=== PATIENT | female | born 1945 | race Two or more races ===

== ENCOUNTER 2019-01-17 09:42 | Emergency (ER) | payer MEDICARE, MEDICAID ==
--- NOTE | 2019-01-17 09:59 | ER Document Report ---
ED Medical Screen (RME) - General Chief Complaint: Diarrhea Stated Complaint: DIARRHEA Time Seen by Provider: 01/17/19 09:53 Primary Care Provider: MARY ABEL [Primary Care Provider] - Follow up as needed Mode of Arrival: Wheelchair Information source: Relative Notes: Patient presents with a complaint of abdominal pain and diarrhea for the past 3 days. Patient has had nausea no fever or vomiting. Family member states that patient is occasionally confused. Patient complains of left upper quadrant abdominal tenderness. hx: Hypertension, arthritis, CHF, cholecystectomy, I have greeted and performed a rapid initial assessment of this patient. A comprehensive ED assessment and evaluation of the patient, analysis of test results and completion of the medical decision making process will be conducted by additional ED providers. TRAVEL OUTSIDE OF THE [place] IN LAST 30 DAYS: No - Related Data Allergies/Adverse Reactions: No Known Allergies Allergy (Verified 01/17/19 09:52) Physical Exam - Vital signs Vitals: Temp Pulse Resp BP Pulse Ox 97.6 F 91 20 149/77 H 99 01/17/19 09:51 01/17/19 09:51 01/17/19 09:51 01/17/19 09:51 01/17/19 09:51 - Abdominal Inspection: Morbidly Obese Tenderness: Tender - Left upper quadrant Course - Vital Signs Vital signs: Temp Pulse Resp BP Pulse Ox 97.6 F 91 20 149/77 H 99 01/17/19 09:51 01/17/19 09:51 01/17/19 09:51 01/17/19 09:51 01/17/19 09:51 Doctor's Discharge - Discharge Referrals: MARY ABEL [Primary Care Provider] - Follow up as needed
[2019-01-17 10:39] LABS: ABSOLUTE BASOPHILS # (AUTO) 0.1 10^3/uL (0.0-0.2); ABSOLUTE LYMPHOCYTES (AUTO) 2.5 10^3/uL (0.5-4.7); ABSOLUTE MONOCYTES (AUTO) 0.6 10^3/uL (0.1-1.4); ABSOLUTE NEUT (AUTO) 14.7 10^3/uL (1.7-8.2); BASOPHILS % (AUTO) 0.5 % (0-2); EOSINOPHILS % (AUTO) 0.2 % (0-6); HEMATOCRIT 43.2 % (36.0-47.0); HEMOGLOBIN 14.7 g/dL (12.0-15.5); MEAN CORPUSCULAR HEMOGLOBIN 30.9 pg (27.0-33.4); MEAN CORPUSCULAR VOLUME 91 fl (80-97); MONOCYTES % (AUTO) 3.5 % (3-13); PLATELET COUNT 240 10^3/uL (150-450); RED BLOOD COUNT 4.75 10^6/uL (3.72-5.28); RED CELL DISTRIBUTION WIDTH 13.3 % (11.5-14.0); SEGMENTED NEUTROPHILS % (AUTO) 81.8 % (42-78); TOTAL CELLS COUNTED % (AUTO) 100 %; WHITE BLOOD COUNT 17.9 10^3/uL (4.0-10.5)
[2019-01-17 11:12] LABS: ALANINE AMINOTRANSFERASE 17 U/L (9-52); ALBUMIN 4.5 g/dL (3.5-5.0); ALKALINE PHOSPHATASE 135 U/L (38-126); ANION GAP 9 (5-19); ASPARTATE AMINO TRANSFERASE 29 U/L (14-36); BILIRUBIN,DIRECT 0.3 mg/dL (0.0-0.4); BILIRUBIN,TOTAL 0.6 mg/dL (0.2-1.3); BLOOD UREA NITROGEN 14 mg/dL (7-20); CALCIUM 9.9 mg/dL (8.4-10.2); CARBON DIOXIDE 29 mmol/L (22-30); CHLORIDE 100 mmol/L (98-107); GLUCOSE 110 mg/dL (75-110); LIPASE 91.7 U/L (23-300); SODIUM 138.3 mmol/L (137-145); TOTAL PROTEIN 8.5 g/dL (6.3-8.2)
[2019-01-17] MEDS ORDERED: MORPHINE SULFATE 10 MG/ML INJ IV ONE (11:21)
[2019-01-17] MEDS ORDERED: ONDANSETRON HCL INJ/PF 4 MG/2 ML SDV IV ONE (11:21)
[2019-01-17] MEDS ORDERED: NORMAL SALINE 1000 ML 1,000 ML IV ONE (11:21)
--- NOTE | 2019-01-17 11:21 | EKG REPORT ---
SEVERITY:- ABNORMAL ECG - A-FLUTTER/FIBRILLATION W/ COMPLETE AV BLOCK NONSPECIFIC INTRAVENTRICULAR CONDUCTION DELAY PROBABLE LEFT VENTRICULAR HYPERTROPHY ANTERIOR Q WAVES, POSSIBLY DUE TO LVH : Confirmed by: Roseann Guerrero MD 17-Jan-2019 11:21:19
--- NOTE | 2019-01-17 11:27 | ER Document Report ---
ED GI/ - General Chief Complaint: Diarrhea Stated Complaint: DIARRHEA Time Seen by Provider: 01/17/19 09:53 Primary Care Provider: MARY ABEL [NO LOCAL MD] - Follow up as needed Mode of Arrival: Wheelchair Notes: Patient is a 73-year-old female with a history of congestive heart failure, hy pertension, hypothyroidism, and chronic pain who presents to the emergency department with a chief complaint of diarrhea and abdominal pain. The son states that the patient complained of diarrhea starting on Wednesday. He states that the diarrhea is brown liquid in color and without blood. He states the patient has gone to the bathroom every hour since Wednesday. Patient is also had increased urinary frequency although he states that she is on a diuretic for her congestive heart failure. The son states she is also had some confusion since Wednesday. The son states that for instance on the way to the hospital she thought the day was Wednesday. She has taken Imodium this morning without relief of the diarrhea. Patient reports that the pain is a colicky type pain and is constant. Patient is on OxyContin 20 mg every 12 hours and Percocet 5 mg 4 times a day as needed for her chronic pain. Patient does see [facility]. The son states she has chronic arthritic pain which is why she is on this medication. States she had a colonoscopy years ago which was normal. TRAVEL OUTSIDE OF THE [place] IN LAST 30 DAYS: No - Related Data Allergies/Adverse Reactions: No Known Allergies Allergy (Verified 01/17/19 10:15) Past Medical History - General Information source: Relative - Social History Smoking Status: Never Smoker Cigarette use (# per day): No Chew tobacco use (# tins/day): No Frequency of alcohol use: None Drug Abuse: None Lives with: Family Family History: None - Past Medical History Cardiac Medical History: Reports: Hx Congestive Heart Failure, Hx Hypertension Pulmonary Medical History: Reports: None EENT Medical History: Reports: None Neurological Medical History: Reports: None Endocrine Medical History: Reports: Hx Hypothyroidism Renal/ Medical History: Reports: None Malignancy Medical History: Reports: None GI Medical History: Reports: None Musculoskeletal Medical History: Reports Hx Arthritis, Reports Other - Hx. chronic pain Skin Medical History: Reports None Psychiatric Medical History: Reports: None Traumatic Medical History: Reports: None Infectious Medical History: Reports: None Past Surgical History: Reports: Hx Section Review of Systems - Review of Systems Constitutional: See HPI EENT: No symptoms reported Cardiovascular: No symptoms reported Respiratory: No symptoms reported Gastrointestinal: See HPI Genitourinary: See HPI Female Genitourinary: No symptoms reported Musculoskeletal: No symptoms reported Skin: No symptoms reported Hematologic/Lymphatic: No symptoms reported Neurological/Psychological: No symptoms reported Physical Exam - Vital signs Vitals: Temp Pulse Resp BP Pulse Ox 97.6 F 91 20 149/77 H 99 01/17/19 09:51 01/17/19 09:51 01/17/19 09:51 01/17/19 09:51 01/17/19 09:51 Interpretation: Hypertensive - Notes Notes: GENERAL: Well-appearing, well-nourished and in no acute distress. HEAD: Atraumatic, normocephalic. EYES: Pupils equal round and reactive to light, extraocular movements intact, sclera anicteric, conjunctiva are normal. ENT: Nares patent, oropharynx clear without exudates. Dry mucous membranes. NECK: Normal range of motion, supple without lymphadenopathy or JVD. LUNGS: Breath sounds clear to auscultation bilaterally and equal. No wheezes rales or rhonchi. HEART: Regular rate and rhythm without murmurs, rubs or gallops. ABDOMEN: Soft, tenderness to LUQ and LLQ, normoactive bowel sounds. No guarding, no rebound. No masses appreciated. BACK: No cervical, thoracic, lumbar midline tenderness. No saddle anesthesia, normal distal neurovascular exam. GENITOURINARY: Deferred. EXTREMITIES: Normal range of motion, no pitting or edema. No clubbing or cyanosis. NEUROLOGICAL: Cranial nerves II through XII grossly intact. Normal speech, normal gait (patient does walk slowly with walker and assistance) PSYCH: Normal mood, normal affect. SKIN: Warm, Dry, normal turgor, no rashes or lesions noted. Course - Re-evaluation Re-evalutation: 01/17/19 11:29 Acute abdominal series x-ray is pending well as labs. Hydrate and give patient medication for her abdominal pain and nausea. We will continue to monitor. 01/17/19 13:09 Upon reevaluation patient appears to be feeling better but her abdomen remains extremely tender in the left upper and left lower quadrant. She has not had any diarrhea since being in the emergency department. Patient has received about 500 mL's of the saline bolus and the family member states that she is acting more coherent. Patient was able to provide a urine specimen in which the results are pending. Since the patient remains tender in the left upper and lower quadrant, she has a leukocytosis I do believe patient requires additional imaging. She is EKG was read as an A. fib a flutter with a heart rate of 99. Patient's QT was 376 and QTC 483. It is extremely difficult to read the EKG as there is a large amount of artifact. Patient does not have a history of A. fib or a flutter and is not currently have any chest pain or shortness of breath. The EKG did show a normal axis deviation without any obvious ST segment changes. Will repeat EKG. 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 01/17/19 16:56 On reevaluation I did use the [employer] translator/interpreter, name is Charisse, to perform a reevaluation. Patient states that she is having slight left mid abdominal pain but feels much better. Patient does have hyperactive bowel sounds abdomen remains soft. Patient states she has not had any nausea, vomiting or diarrhea since being in the emergency department. Son had mentioned concerned that she was slightly confused and did not know the year or what city she was in. I did perform a thorough neuro assessment which was negative except patient did not know the year or city. Patient was aware that she is in the hospital for her abdominal pain and diarrhea. Patient does take a significant amount of narcotics for her chronic pain. Son states she has not had these medications since being in the emergency department. Son states she did have similar symptoms in the past where she was confused for 2 days while in [place]. He states that she was not diagnosed with a stroke or a mini stroke but was told that she was dehydrated. Patient states that this occurs while she is taking her medication and while she is dehydrated. I did inform the patient and son that a CT scan of the head would be ordered to rule out stroke or bleed as the son states her symptoms have been present since yesterday. The son and patient both refused stating that they do not think that is necessary at this time. Son states he would like to take the patient home, give her her medications and will return if her symptoms worsen. 01/17/19 17:35 Continues to tolerate sips of water no acute distress. I did discuss strict return precautions with the patient and his son. The son states that the patient lives with her and he will keep a close eye on her and return for any concerning signs or symptoms. I did state that she potentially has colitis and to start out with a clear liquid diet and advance to a brat diet. Patient to avoid greasy or fatty foods as this can exacerbate her symptoms. And patient both verbalized understanding. Her blood pressure was slightly elevated at discharge. Patient has not had any of her blood pressure medication in which she will take when she gets home. She denies headache or dizziness. - Vital Signs Vital signs: Temp Pulse Resp BP Pulse Ox 97.6 F 91 14 172/110 H 98 01/17/19 09:51 01/17/19 09:51 01/17/19 15:01 01/17/19 15:01 01/17/19 15:01 - Laboratory Result Diagrams: 01/17/19 10:16 01/17/19 10:16 Laboratory results interpreted by me: 01/17/19 01/17/19 01/17/19 10:16 10:16 12:55 WBC 17.9 H Seg Neutrophils % 81.8 H Absolute Neutrophils 14.7 H Alkaline Phosphatase 135 H Total Protein 8.5 H Urine Ketones 25 H Urine Blood SMALL H Ur Leukocyte Esterase SMALL H 01/17/19 17:24 She has a leukocytosis 17.9. - Diagnostic Test Radiology reviewed: Reports reviewed - EKG Interpretation by Me Additional EKG results interpreted by me: 01/17/19 17:23 The EKG was read as an A. fib a flutter with a heart rate of 99. Patient's QT was 376 and QTC 483. It is extremely difficult to read the EKG as there is a large amount of artifact. Patient does not have a history of A. fib or a flutter and is not currently have any chest pain or shortness of breath. The EKG did show a normal axis deviation without any obvious ST segment changes. 01/17/19 17:30 Patient's repeat EKG shows a sinus rhythm with a rate of 93. Patient's RI interval is 208, QT is 376 and QTC is 468. Patient has a normal axis deviation with no significant ST segment changes. Did show this to ekg to Dr. Sherine Singh for comparison of the first ekg. Discharge - Discharge Clinical Impression: Nausea vomiting and diarrhea, Confusion, Colitis Abdominal pain Qualifiers: Abdominal location: unspecified location Qualified Code(s): R10.9 - Unspecified abdominal pain Condition: Stable Disposition: HOME, SELF-CARE Additional Instructions: Today you were seen in the emergency department for vomiting and diarrhea. We did obtain a CT of the abdomen which was negative for any acute abnormality. Since receiving IV fluids and nausea medication you have reported that you feel much better and have been tolerating p.o. Please return to the emergency department for any worsening signs or symptoms to include uncontrollable diarrhea, uncontrollable vomiting, fever, severe abdominal pain, dizziness or any other concerning signs or symptoms. We have offered to obtain a CAT scan of the head which you and your son have politely declined as you guys are ready to go home and you do not believe that this is necessary. Please return to the emergency department for numbness or weakness in your upper or lower extremities, facial droop, difficulty speaking or swallowing, severe headache or any other concerning signs or symptoms. Her blood pressure was also noted to be elevated, please take your home medications as previously prescribed as you had not had any of these today. Nausea or Vomiting, Nonspecific Vomiting (or nausea without vomiting) can be caused by many different problems. Of course, it can mean that something's wrong with the stomach, such as "stomach flu," ulcers, or inflammation. But it can also be a symptom of a problem that has nothing to do with the stomach or intestines. Vomiting is common with severe headaches, earaches, and tonsillitis. We see it with pneumonia or heart attacks. Drugs can cause nausea. Many abdominal problems cause vomiting; for example, gallstones, kidney stones, pancreatitis, and intestinal obstruction (blocked bowels). In most cases, curing the vomiting depends on fixing the problem that caused it. For temporary relief, we may use an anti-nausea medicine. For home use, we can prescribe suppositories, chewable pills, pills that dissolve in the mouth, or liquid anti-nausea drugs. If the vomiting seems to be caused by a problem in the stomach, acid-suppressing drugs may be prescribed as well. It's important to avoid dehydration. Sip clear liquids. Take increasing amounts of fluid over the first 24 hours. Then start small amounts of bland foods (such as dry toast, applesauce, mashed potato). Avoid aspirin, tobacco, and alcohol. Gradually resume your usual diet. If the vomiting worsens, if the problem that's making you vomit worsens, or if there's evidence of bleeding in the stomach (such as black, tarry stool, bloody or black vomit, or lightheadedness), you should return immediately. Call your doctor if you aren't improved in 24 to 36 hours. Diarrhea Diarrhea means frequent, watery stools. There are many causes. Any problem that keeps the intestinal tract from absorbing water from the stool can lead to diarrhea. A sudden new diarrhea problem is usually caused by a virus, food sensitivity, toxic bacteria, or drugs. In this case, we expect the problem to go away soon. Testing is done only if you seem seriously ill from the diarrhea. If you have chronic diarrhea, or diarrhea that keeps coming back, we need to find out why. Chronic diarrhea can be due to inflammation of the bowels such as Crohn's disease or ulcerative colitis, food sensitivity such as intolerance to lactose or wheat protein, irritable bowel syndrome, and other problems. If your diarrhea is a significant problem but it's not clear why you have it, we'll refer you to a specialist for further testing. During an episode of diarrhea, drink small amounts (two to six ounces) of clear liquids (soft drinks, sport drinks, herb teas, broth, etc). Take fluids frequently to prevent dehydration. It's usually not a problem to take mild anti- diarrhea medication such as Kaopectate or Pepto-Bismol. As the diarrhea eases, advance to small amounts of bland food (mashed potato, toast) for 24 hours. Call the physician if blood appears in your vomit or stool, if vomiting lasts longer than 24 hours, if the abdominal pain worsens or becomes localized to one area, if you develop high fever, or if you become lightheaded and weak. Referrals: LOCALMD,NO [NO LOCAL MD] - Follow up as needed
--- NOTE | 2019-01-17 12:36 | RADIOLOGY REPORT (SQ) ---
EXAM DESCRIPTION: ACUTE ABDOMEN SERIES COMPLETED DATE/TIME: 01/17/2019 11:54 am REASON FOR STUDY: diarrhea, abd pain COMPARISON: 02/01/2015 AP chest NUMBER OF VIEWS: Three views. TECHNIQUE: Frontal chest, supine abdomen and upright abdomen radiographic images acquired. LIMITATIONS: None. FINDINGS: CHEST: Lungs clear of infiltrates. Do cardiac silhouette size, ronald unremarkable. No acu te bony changes. FREE AIR: None. No abnormal gas collections. BOWEL GAS PATTERN: Nonobstructive pattern. No dilated loops or air fluid levels. CALCIFICATIONS: No suspicious calcifications. HARDWARE: None in the abdomen. SOFT TISSUES: No gross mass or suggestion of organomegaly. BONES: Convex rightward lumbar curvature. Left hip replacement OTHER: No other significant finding. IMPRESSION: NO RADIOGRAPHIC EVIDENCE FOR ACUTE ABDOMINAL DISEASE. TECHNICAL DOCUMENTATION: JOB ID: [id number] [employer]- All Rights Reserved Reading location - IP/workstation name: [email or web address]
[2019-01-17 14:20] LABS: URINE SPECIFIC GRAVITY 1.007
[2019-01-17 14:21] LABS: APPEARANCE,URINE CLEAR; BILIRUBIN,URINE NEGATIVE (NEGATIVE); COLOR,URINE STRAW; GLUCOSE, URINE NEGATIVE (NEGATIVE); KETONES,URINE 25 mg/dL (NEGATIVE); LEUKOCYTE ESTERASE,URINE SMALL (NEGATIVE); NITRITE,URINE NEGATIVE (NEGATIVE); PROTEIN,URINE NEGATIVE (NEGATIVE); UROBILINOGEN,URINE NEGATIVE mg/dL (<2.0)
--- NOTE | 2019-01-17 16:28 | RADIOLOGY REPORT (SQ) ---
EXAM DESCRIPTION: CT ABD/PELVIS WITH IV ORAL COMPLETED DATE/TIME: 01/17/2019 4:07 pm REASON FOR STUDY: luq and llq pain, leukocytosis, diarrhea COMPARISON: None. TECHNIQUE: CT scan of the abdomen and pelvis performed using helical scanning technique with dynamic intravenous contrast injection. Patient drank oral contrast. Images reviewed with lung, soft tissue , and bone windows. Reconstructed coronal and sagittal MPR images reviewed. Delayed images for evalua tion of the urinary system also acquired. All images stored on PACS. All CT scanners at this facility use dose modulation, iterative reconstruction, and/or weight based d osing when appropriate to reduce radiation dose to as low as reasonably achievable (ALARA). [facility]: Dose Right [facility]: CareDose [facility]: Dose Right [facility]: Teradose 4D [facility]: Playmatics CONTRAST TYPE AND DOSE: contrast/concentration: Isovue 350.00 mg/ml; Total Contrast Delivered: 100.0 ml; Total Saline Delivered: 32.7 ml RENAL FUNCTION: Creatinine 0.8 RADIATION DOSE: CT Rad equipment meets quality standard of care and radiation dose reduction techniq ues were employed. CTDIvol: 20.6 - 21.1 mGy. DLP: 2151 mGy-cm.. LIMITATIONS: Streak artifact in the pelvis from left hip replacement FINDINGS: LOWER CHEST: No significant findings. No nodules or infiltrates. LIVER: Normal size. Low attenuation from fatty infiltration. Very mild intrahepatic biliary ductal prominence without common bile duct dilatation. Common duct 7 mm on coronal image 42. SPLEEN: Normal size. No focal lesions. PANCREAS: No masses. No significant calcifications. No adjacent inflammation or peripancreatic fluid collections. Pancreatic duct not dilated. GALLBLADDER: Surgically absent ADRENAL GLANDS: No significant masses or asymmetry. RIGHT KIDNEY AND URETER: No solid masses. No significant calcifications. No hydronephrosis or hyd roureter. LEFT KIDNEY AND URETER: No solid masses. No significant calcifications. No hydronephrosis or hydr oureter. AORTA AND VESSELS: No aneurysm. No dissection. Renal arteries, SMA, celiac without stenosis. RETROPERITONEUM: No retroperitoneal adenopathy, hemorrhage or masses. BOWEL AND PERITONEAL CAVITY: Patient drank oral contrast. No CT evidence of bowel obstruction or mary jane e intraperitoneal air or fluid. No colonic diverticulosis. APPENDIX: Normal. PELVIS: No mass. No free fluid. Normal bladder. Normal size female pelvic organs ABDOMINAL WALL: No masses. No hernias. BONES: Multilevel degenerative disc changes in the lumbar spine, left hip replacement OTHER: No other significant finding. IMPRESSION: Post cholecystectomy. Mild intrahepatic biliary ductal dilatation without common duct d ilatation. Oral contrast throughout the gastrointestinal tract without CT signs of bowel obstruction or divertic ular disease. TECHNICAL DOCUMENTATION: JOB ID: [id number] Quality ID # [id number]: Final reports with documentation of one or more dose reduction techniques (e.g., Au tomated exposure control, adjustment of the mA and/or kV according to patient size, use of iterative reconstruction technique) 2010 [employer]- All Rights Reserved Reading location - IP/workstation name: [email or web address]
[2019-01-17 17:55] VITALS: BP 183/78
--- NOTE | 2019-01-17 21:26 | EKG REPORT ---
SEVERITY:- BORDERLINE ECG - SINUS RHYTHM BORDERLINE T ABNORMALITIES, INFERIOR LEADS : Confirmed by: Roseann Guerrero MD 17-Jan-2019 21:25:08
== END 2019-01-17 17:55 | disposition home or self-care (01) ==
LOC: ER 09:42
DX: K52.9 Noninfective gastroenteritis and colitis, unspecified (principal); R11.2 Nausea with vomiting, unspecified; R10.9 Unspecified abdominal pain; R10.12 Left upper quadrant pain; R10.32 Left lower quadrant pain; I50.9 Heart failure, unspecified; I11.0 Hypertensive heart disease with heart failure; G89.29 Other chronic pain; R41.0 Disorientation, unspecified
CPT/HCPCS: 93005 ×2; 99284; 96361; 96374; 96375; 36415; 83605; 83690; 85025; 80053; 81001; 84484; 74022; 74177; 93010; J2270; J2405; J7030

== ENCOUNTER 2019-06-22 08:58 | Day surgery (SDC) | payer MEDICARE, MEDICAID ==
[2019-06-16 12:40] LABS: ABSOLUTE BASOPHILS # (AUTO) 0.1 10^3/uL (0.0-0.2); ABSOLUTE EOSINOPHILS # (AUTO) 0.3 10^3/uL (0.0-0.6); ABSOLUTE LYMPHOCYTES (AUTO) 2.8 10^3/uL (0.5-4.7); ABSOLUTE MONOCYTES (AUTO) 0.6 10^3/uL (0.1-1.4); ABSOLUTE NEUT (AUTO) 6.6 10^3/uL (1.7-8.2); BASOPHILS % (AUTO) 0.6 % (0-2); EOSINOPHILS % (AUTO) 2.8 % (0-6); HEMOGLOBIN 12.8 g/dL (12.0-15.5); LYMPHOCYTES % (AUTO) 27.2 % (13-45); MEAN CORPUSCULAR HEMOGLOBIN 30.6 pg (27.0-33.4); MEAN CORPUSCULAR HGB CONC 32.8 g/dL (32.0-36.0); MEAN CORPUSCULAR VOLUME 93 fl (80-97); MONOCYTES % (AUTO) 5.4 % (3-13); PLATELET COUNT 243 10^3/uL (150-450); RED BLOOD COUNT 4.19 10^6/uL (3.72-5.28); RED CELL DISTRIBUTION WIDTH 13.6 % (11.5-14.0); TOTAL CELLS COUNTED % (AUTO) 100 %; WHITE BLOOD COUNT 10.3 10^3/uL (4.0-10.5)
[2019-06-16 13:00] LABS: POTASSIUM 5.7 mmol/L (3.6-5.0)
--- NOTE | 2019-06-16 13:00 | EKG REPORT ---
SEVERITY:- OTHERWISE NORMAL ECG - SINUS RHYTHM VENTRICULAR PREMATURE COMPLEX : Confirmed by: Roseann Guerrero MD 16-Jun-2019 13:00:22
[~2019-06-22 08:58] MED LIST: LACTATED RINGERS 1000 ML IV PRN
[2019-06-22] MEDS ORDERED: LIDOCAINE 2% INJ-PF (20 MG/ML) 10 ML AMPUL ONE (12:04)
[2019-06-22] MEDS ORDERED: PROPOFOL INJ 200 MG/20 ML VIAL IV ONE (12:04)
[2019-06-22] MEDS ORDERED: DIPHENHYDRAMINE HCL 50 MG/ML VIAL IV PRN (12:53)
[2019-06-22] MEDS ORDERED: PROMETHAZINE HCL INJ 25 MG/1 ML VIAL IV PRN ×2 (12:53)
[2019-06-22] MEDS ORDERED: ONDANSETRON HCL INJ/PF 4 MG/2 ML SDV IV PRN (12:53)
[2019-06-22] MEDS ORDERED: MEPERIDINE HCL/PF INJ 25 MG/1 ML DISP.SYRIN IV PRN (12:53)
--- NOTE | 2019-06-22 13:42 | Operative Report ---
Operative Report DATE OF SURGERY: 06/22/19 Operative Report: The risks, benefits and alternatives of the procedure including the risks of bleeding, perforation requiring surgery have been explained to the patient in detail and informed consent has been obtained. Patient is placed in a left, lateral decubital position. Timeout was called. Propofol medication is administered. Rectal examination is done which did not reveal any masses, tears or fissures. the scope was introduced into the patient's rectum. Scope was then carefully advanced all the way to the cecum. The cecum was identified by the usual anatomical landmarks of the ileocecal valve as well as the appendiceal office. Photodocumentation is obtained. Scope was then sequentially pulled back via the various segments of the colon including the ascending colon, hepatic flexure, transverse colon, splenic flexure, descending colon finally in to the rectosigmoid portions of the colon. Retroflexion maneuver is performed. PREOPERATIVE DIAGNOSIS: Positive Cologuard test. POSTOPERATIVE DIAGNOSIS: Small polyp versus area of inflammation on the right side of the colon status post biopsy OPERATION: Colonoscopy with biopsy SURGEON: MAMIE LAWSON ANESTHESIA: LMAC TISSUE REMOVED OR ALTERED: As noted above. COMPLICATIONS: None. ESTIMATED BLOOD LOSS: None. INTRAOPERATIVE FINDINGS: As noted above. PROCEDURE: Patient tolerated the procedure well. No immediate postprocedure complications are noted. Patient is discharged in good condition. Discharge date 06/22/2019. Discharge diet: Regular. Discharge activity: Regular. 2 to 3-week follow-up to discuss findings. Patient is instructed to call the office or proceed to the emergency room should he be any further problems or questions. If pathology is negative can consider 10-year surveillance colonoscopy.
[2019-06-22 14:52] VITALS: BP 140/80
== END 2019-06-22 14:25 | disposition home or self-care (01) ==
LOC: OROUT 08:58
PROVIDERS: ATTEND Internal Medicine Gastroenterology
DX: Z12.11 Encounter for screening for malignant neoplasm of colon (principal); D12.6 Benign neoplasm of colon, unspecified; K52.9 Noninfective gastroenteritis and colitis, unspecified; I11.9 Hypertensive heart disease without heart failure; Z79.899 Other long term (current) drug therapy; E03.9 Hypothyroidism, unspecified; E78.5 Hyperlipidemia, unspecified; D63.8 Anemia in other chronic diseases classified elsewhere; I95.1 Orthostatic hypotension; I27.20 Pulmonary hypertension, unspecified; E11.9 Type 2 diabetes mellitus without complications; Z79.4 Long term (current) use of insulin; R06.02 Shortness of breath; J44.9 Chronic obstructive pulmonary disease, unspecified; E78.00 Pure hypercholesterolemia, unspecified
CPT/HCPCS: 45380; 93005; 36415 ×2; 80051; 82947; 84132; 85025; 88305 ×2; 93010; 00811; J2704; J3490; 811